=== PATIENT | female | born 2000 | race Two or more races ===

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

== ENCOUNTER 2021-03-30 02:10 | Emergency (ER) | payer MEDICAID ==
[~2021-03-30] VITALS: Ht 152.4 cm; Wt 45.4 kg
[2021-03-30 02:10] VITALS: BP 106/71
== END 2021-03-30 03:18 | disposition left against medical advice (07) ==
LOC: ER 02:11
DX: R56.9 Unspecified convulsions (principal); Z53.21 Procedure and treatment not carried out due to patient leaving prior to being seen by health care provider

== ENCOUNTER 2021-06-17 09:10 | Emergency (ER) | payer MEDICAID ==
[~2021-06-17] VITALS: Ht 152.4 cm; Wt 45.4 kg
[2021-06-17 09:46] VITALS: BP 115/80
== END 2021-06-17 09:59 | disposition left against medical advice (07) ==
LOC: EDBD 09:10 → ER 09:10
DX: R10.9 Unspecified abdominal pain (principal); Z53.21 Procedure and treatment not carried out due to patient leaving prior to being seen by health care provider

== ENCOUNTER 2021-07-02 13:16 | Emergency (ER) | payer MEDICAID ==
[~2021-07-02] VITALS: Ht 162.6 cm; Wt 39.9 kg
[2021-07-02 13:45] LABS: Basophils # (auto) 0.1 10 ^3/uL (0-0.2); Eosinophils # (auto) 0 10 ^3/uL (0-0.8); Lymphocytes # (auto) 1.6 10 ^3/uL (0.4-5.4); Monocytes # (auto) 0.4 10 ^3/uL (0-1.3); Neutrophils # (auto) 7.6 10 ^3/uL (1.6-8.6)
[2021-07-02 13:46] LABS: Basophils % (auto) 0.7 % (0.0-2.0); Eosinophils % (auto) 0.5 % (0.0-7.0); Hemoglobin 12.4 g/dL (12.2-16.2); Lymphocytes % (auto) 16.3 % (10.0-50.0); Mean Corpuscular Hemoglobin 34.2 pg (28.0-32.0); Mean Corpuscular Hgb Conc. 34.4 g/dL (32.0-36.0); Mean Corpuscular Volume 99.4 fL (80.0-100.0); Monocytes % (auto) 3.7 % (0.0-12.0); Neutrophils % (auto) 78.8 % (37.0-80.0); Red Blood Cells 3.62 10^6/uL (4.0-5.20); Red Cell Distribution Width 12.6 % (11.8-14.3); White Blood Cell 9.6 10^3/uL (4.4-10.8)
[2021-07-02 14:11] LABS: Albumin 2.9 g/dL (3.4-5.0); BUN/Creatinine Ratio 8.5; Calcium 8.6 mg/dL (8.5-10.1); Potassium 3.8 mmol/L (3.5-5.1)
[2021-07-02 14:14] LABS: Bilirubin, Total 0.2 mg/dL (0.2-1.0); Total Protein 6.7 g/dL (6.4-8.2)
[2021-07-02 17:01] VITALS: BP 127/71
== END 2021-07-02 17:01 | disposition home or self-care (01) ==
LOC: ER 13:16
DX: O21.8 Other vomiting complicating pregnancy (principal); R10.9 Unspecified abdominal pain; Z3A.15 15 weeks gestation of pregnancy; Z88.1 Allergy status to other antibiotic agents
CPT/HCPCS: 36415; 76801; 80053; 84702; 85025

== ENCOUNTER 2023-09-27 23:00 | Emergency (ER) | payer MEDICAID ==
[~2023-09-27] VITALS: Ht 160 cm; Wt 90.0 kg
[2023-09-27 23:00] VITALS: BP 116/75; PULSE 105; RESP 20; O2SAT 96
[~2023-09-27 23:00] MED LIST: CEPH-510 PO; IBUP-1454 PO; NITR-87 PO
[2023-09-28] MEDS ORDERED: ACET500T58 PO (02:06)
[2023-09-28] MEDS ORDERED: CEPH500C PO (02:06)
[2023-09-28] MEDS: TETANUS-DIPTH-ACEL PERTUSSIS 0.5ML SYR Tdap IM ONE (02:13)
== END 2023-09-28 02:28 | disposition home or self-care (01) ==
LOC: ER 23:00
DX: S60.511A Abrasion of right hand, initial encounter (principal); F12.90 Cannabis use, unspecified, uncomplicated; Z79.1 Long term (current) use of non-steroidal anti-inflammatories (NSAID); Z79.899 Other long term (current) drug therapy; W01.0XXA Fall on same level from slipping, tripping and stumbling without subsequent striking against object, initial encounter; Y93.89 Activity, other specified; Y92.89 Other specified places as the place of occurrence of the external cause; Y99.8 Other external cause status
CPT/HCPCS: 90471; 90715

== ENCOUNTER 2024-06-15 01:04 | Emergency (ER) | payer MEDICAID ==
[~2024-06-15] VITALS: Ht 160 cm; Wt 39.2 kg
[~2024-06-15 01:04] MED LIST changes: +ACET500T58 PO; +CEPH500C PO
--- NOTE | 2024-06-15 01:49 | DVH ---
EXAM: CT HEAD WITHOUT CONTRAST INDICATION: HEAD INJURY N/V TECHNIQUE: CT of the head without intravenous contrast. Radiation Dose : 1. Head: CT Dose: CTDI volume is 51.89 mGy. Dose-length product is 917.68 mGy*cm The dose indicators for CT are the volume Computed Tomography (CT) Dose Index (CTDIvol) and the Dose Length Product (DLP), and are measured in units of mGy and mGy-cm, respectively. These indicators are not patient dose, but values generated from the CT scanner acquisition factors. The report includes radiation exposure data for exposures received during this examination. COMPARISON: HEAD WITHOUT CONTRAST on DOS: 05/23/20 FINDINGS: There is no evidence of acute intracranial hemorrhage, extra-axial collection, mass effect, midline s hift, herniation or hydrocephalus. The ventricles, sulci and cisterns are age appropriate. The donald-white differentiation is intact. The visualized paranasal sinuses and mastoid air cells are clear. The surrounding soft tissues and osseous structures are unremarkable. IMPRESSION: 1. No acute intracranial abnormality. Radiation optimization: All CT scans at this facility use at least one of these dose optimization nahum hniques: automated exposure control mA and/or kV adjustment per patient size (includes targeted exam s where dose is matched to clinical indication) or iterative reconstruction.
--- NOTE | 2024-06-15 01:55 | ED.PDOC ---
HPI (NEURO) HPI Comments Pt presents to the ER due to head s/p fall. Pt states she waS sitting on her stairs at home got up and was dizzy and fell. Pt reports hitting the right side of her head. Pt noted to have swelling, bruising, and abrasion to head. +nausea and vomiting. Pt denies LOC, neck pain, or blurred vision, LOC Chief Complaint: Head Injury Time Seen by MD: 01:08 Primary Care Provider: n/a Reviewed Notes: Nurses Notes, Medications, Allergies Information Source: Patient Mode of Arrival: Ambulatory Past Medical History PAST MEDICAL HISTORY: Seizures Past Medical History (Other): Pediatric seizures up to the age of 8 Surgical History: Denies all surgeries APPLIED PSYCHOLOGY PROFESSOR History: No Pertinent APPLIED PSYCHOLOGY PROFESSOR History Family History Family History: Family hx of DM, Family hx of stroke Family History (Other): Grandma from Dad's side had a stroke, . Mother has unspecified autoimmune illness Social History Smoker: Non-Smoker Alcohol: Occasionally Drugs: Marijuana Lives In: Home Constitutional: denies: chills, diaphoresis, fatigue, fever, malaise, sweats, weakness, others EENTM: denies: blurred vision, double vision, ear bleeding, ear discharge, ear drainage, ear pain, ear ringing, eye pain, eye redness, hearing loss, mouth pain, mouth swelling, nasal discharge, nose bleeding, nose congestion, nose pain, photophobia, tearing, throat pain, throat swelling, voice changes, others Respiratory: denies: cough, hemoptysis, orthopnea, SOB at rest, shortness of breath, SOB with excertion, stridor, wheezing, others Cardiovascular: denies: chest pain, dizzy spells, diaphoresis, Dyspnea on exertion, edema, irregular heart beat, left arm pain, lightheadedness, palpit ations, PND, syncope, others Gastrointestinal: denies: abdomen distended, abdominal pain, blood streaked b owels, constipated, diarrhea, dysphagia, difficulty swallowing, hematemesis, melena, nausea, poor appetite, poor fluid intake, rectal bleeding, rectal pain, vomiting, others Genitourinary: denies: abnormal vagina bleeding, burning, dyspareunia, dysuria, flank pain, frequency, hematuria, incontinence, pain, , vagina discharge, urgency, others Neurological: reports: headache; denies: dizziness, fainting, left sided numbness, left sided weakness, numbness, paresthesia, pre-existing deficit, right sided numbness, right sided weakness, seizure, speech problems, tingling, tremors, weakness, others Musculoskeletal: denies: back pain, gout, joint pain, joint swelling, muscle pain, muscle stiffness, neck pain, others Integumetry: reports: bruises (Head); denies: change in color, change in hair/nails, dryness, laceration, lesions, lumps, rash, wounds, others Allergic/Immunocompromised: denies: Difficulty Healing, Frequent Infections, Hives, Itching, others Hematologic/Lymphatic: denies: anemia, blood clots, easy bleeding, easy bruising, swollen glands, others Endocrine: denies: excessive hunger, excessive sweating, excessive thirst, excessive urination, flushing, intolerance to cold, intolerance to heat, unexplained weight gain, unexplained weight loss, others Psychiatric: denies: anxiety, bipolar disorder, depression, hopeless, panic disorder, schizophrenia, sleepless, suicidal, others Physical Exam General Appearance: No Apparent Distress, Normal HEENT: Normal ENT Inspection, Pharynx Normal, TMs Normal Neck: Full Range of Motion, Non-Tender Respiratory: Chest Non-Tender, Lungs Clear, No Respiratory Distress, Normal Breath Sounds Cardiovascular: No Edema, No JVD, No Murmur, No Gallop, Normal Peripheral Pulses, Regular Rate/Rhythm Breast Exam: Deferred Gastrointestinal: No Organomegaly, Non Tender, No Pulsatile Mass, Normal Bowel Sounds, Soft Genitalia: Deferred Pelvic: Deferred Rectal: Deferred Extremities: Normal capillary refill, Normal inspection, Normal range of motion, Non-tender, No pedal edema Musculoskeletal : Apperance: Normal Neurologic: Alert, v belt finisher II-XII nml as Tested, No Motor Deficits, Normal Affect, Normal Mood, No Sensory Deficits Cerebellar Function: Normal Reflexes: Normal Skin: Dry, Normal Color, Warm, Other (Superficial abrasion with trace edema and ecchymosis to right upper scalp along hairline no noted lacerations bleeding or drainage.) Lymphatic: No Adenopathy Was a procedure done? Was a procedure done?: No Differential Diagnosis (SZ) Seizure: Hypoglycemia, Mass Lesion CVA: Electrolyte Imbalance General Weakness: Vertigo: peripheral Headache: Closed Head Injury, Epidural Hemorrhage, Intracerebral Hemorrhage, Subarachnoid Hemorrhage, Subdural Hemorrhage, Post-Traumatic X-Ray, Labs, Meds, VS Vital Signs Date Time Temp Pulse Resp B/P (MAP) Pulse Ox O2 Delivery O2 Flow Rate FiO2 06/15/24 02:06 98.3 93 17 114/70 (85) 98 98.3 06/15/24 02:06 93 17 98 Room Air 06/15/24 01:12 98.1 100 16 123/79 (94) 98 98.1 Current Medications Medications (Trade) Dose Ordered Sig/Jamar Route Start Time Stop Time Status Last Admin Ondansetron HCl (Zofran Po) 4 mg ONCE ONCE PO 06/15/24 02:00 06/15/24 02:01 DC 06/15/24 02:05 X-Ray, Labs, Meds, VS Comment CT brain shows no acute or chronic findings. Patient was given Zofran 4 mg p.o. reports improvement in symptoms. Script Zofran 4 mg t.i.d. p.r.n. nausea vomiting. Take medications as prescribed side effects discussed. Advised light diet rest avoid stimuli such as TV is video games in her cell phone. Patient states she lives with her mother advised heard a notify mom to watch her for the next 24-48 hours any change in condition slurred speech uncontrolled vomiting blurry vision or any concerning symptoms return here to the ER. Patient indicates understanding and agrees with discharge plan of care. Time of 1ST Reevaluation: 01:47 Reevaluation 1ST: Improved Time of 2ND Reevaluation: 01:50 Patient Education/Counseling: Diagnosis, Treatment, Prognosis, Need For Follow Up Family Education/Counseling: No Family Present Departure 1 Departure Time of Disposition: 01:56 Impression: Primary Impression: Concussion Qualified Codes: S06.0X0A - Concussion without loss of consciousness, initial encounter Additional Impression: Nausea & vomiting Qualified Codes: R11.2 - Nausea with vomiting, unspecified Disposition: 01 HOME / SELF CARE / HOMELESS Condition: Stable e-Prescriptions Ondansetron Odt 4MG Tab (ZOFRAN PO) 4 Mg Tb 4 MG PO TID PRN for 3 Days, #9 TAB ODT TAB-DISSOLVE IN MOUTH, THEN SWALLOW Prov: CHERELLE POSADA 06/15/24 Discharged With: Self Critical Care Note Critical Care Time?: No Stability Stability form required: CHERELLE Barrientos Jun 15, 2024 01:55
[2024-06-15] MEDS ORDERED: ZOFR4T PO (01:57)
[2024-06-15] MEDS: ONDANSETRON ODT 4 MG TAB PO ONE (02:05)
[2024-06-15 02:06] VITALS: BP 114/70; PULSE 93; RESP 17; TEMP 98.3; O2SAT 98
--- NOTE | 2024-06-18 06:56 | ECG ---
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
== END 2024-06-15 02:09 | disposition home or self-care (01) ==
LOC: ER 01:04
DX: S06.0X0A Concussion without loss of consciousness, initial encounter (principal); R11.2 Nausea with vomiting, unspecified; F12.90 Cannabis use, unspecified, uncomplicated; W19.XXXA Unspecified fall, initial encounter; Y93.89 Activity, other specified; Y92.009 Unspecified place in unspecified non-institutional (private) residence as the place of occurrence of the external cause; Y99.8 Other external cause status
CPT/HCPCS: 70450; 99284; Q0162; 93005